=== PATIENT | female | born 1990 | race Caucasian/White ===

== ENCOUNTER 2019-09-19 16:31 | Emergency (ER) | payer MEDICAID, SELFPAY ==
[2019-09-19 16:32] VITALS: BP 130/88; PULSE 96; RESP 18; TEMP 36.6; O2SAT 99; BMI 20.5
--- NOTE | 2019-09-19 17:06 | ED.DCSUM_ITS ---
- ER Visit Summary Date of Service: 09/19/19 Chief Complaint: [Dog bite to right hand] History of Present Illness: The patient is a 29 F [presents to the emergency department after being bitten on her hand by her dog. Patient states that she got between 2 of her dogs that were fighting and was bitten on the right hand. Her dogs are immunized. Patient is right-hand dominant. Patient unsure of her last tetanus shot. Patient was seen with PA and discussed with PA.] Physical Examination: [Right hand-patient has several superficial abrasions and puncture wounds. The largest laceration/puncture wound is over the dorsum of the hand about the base of the fourth metacarpal and measures approximately 1.5 cm in length. Patient has good range of motion flexion extension of all digits. Neurovascular intact distally.] The puncture wound was inspected however it is too small to get a good look at visualization of the extensor tendon to the fourth finger. Given that patient has good range of motion and strength I did not feel extending the wound was necessary. Test Results: [None indicated] Emergency Department Course and Treatment: [Laceration repair-because the wound over the dorsum of the right hand was gaping and there was fat extruding I felt it necessary to apply one single ruptured suture to approximate the wound edges loosely. The wound was irrigated with copious saline and anesthetized locally with 1% lidocaine. The suture was placed by the physician operations assistant and I reevaluated when he was finished. Was given Augmentin 875 mg p.o. Patient was given a tetanus booster.] Treatment Plan: Patient will follow-up with [referral to . Patient is advised that she will require another exam to evaluate her extensor tendon once the swelling has diminished and the pain is diminished. She will be started on Augmentin. Patient advised return if increasing pain, redness, swelling, purulent drainage, or condition should worsen anyway.] Disposition: [Discharged home in stable condition] Impression: [Dog bite right hand Laceration right hand 1.5 cm-simple repair] This note was generated with [employer] software. It may contain incorrect words, spelling, and punctuation that were not noted in review of the chart prior to signing ED Disposition - Plan for ED Patient: Referrals: Care Physician,No Primary [Primary Care Provider] -
--- NOTE | 2019-09-19 17:18 | ED.DEP ---
ED Disposition - Plan for ED Patient: Instructions: Dog Bite Prescriptions: Amox/Clavulanate Tablet [Augmentin Tablet] 875 mg PO Q12H #20 tab Prescription Printed Referrals: Care Physician,No Primary [Primary Care Provider] - Florin Mcghee MD [STAFF PHYSICIAN] - 10 Day for suture removal
--- NOTE | 2019-09-19 17:19 | ED.VIS.UPPEX ---
History of Present Illness Chief Complaint: Bite Informant: Patient, Significant Other Occurred: Today Mechanism/Context: Incised, - - dog bite Onset: Today Context: Sudden Onset Timing: Continuous Quality of Pain: Sharp Location: right hand Current Severity: Moderate Maximum Severity: Severe Worsened by: Movement Relieved by: Rest Associated Symptoms: Negative for: Parasthesia, Weakness, Loss of Funtion Narrative: 29-year-old female [id number] presents to the emergency department with a dog bite right hand that occurred on her dog just prior to arrival. Minor bleeding at this time no numbness tingling or weakness. Does not remember when her last tetanus immunization was. She does not have any other injuries at this time. She is not on blood thinners and has no history of diabetes. She has no other complaints Tetanus Immunization: Unknown Prior similar symptoms: No Recent Illness/Hospitalization: No Past Medical History - Allergies and Home Meds Allergies/Adverse Reactions: Allergies No Known Allergies Allergy (Verified 09/19/19 16:35) Primary Care Physician: Florin Mcghee MD [STAFF PHYSICIAN] - 10 Day for suture removal Care Physician,No Primary [Primary Care Provider] - Prior records reviewed: Yes Past Medical History: None Surgical History: no surgical history Lives: With Family Smoking Status: Light Smoker (<10/day) Alcohol: Occasional Drugs: None Review of Systems All systems negative except as indicated General: Denies: Chills, Fever Eyes: Denies: Visual changes - bilaterally, Blurred Vision - bilaterally ENT: Denies: Rhinorrhea, Sore throat Cardiovascular: Denies: Chest pain, Palpitations Respiratory: Denies: Dyspnea, Cough Gastrointestinal: Denies: Abdominal pain, Nausea, Vomiting, Diarrhea Genitourinary: Denies: Dysuria, Hematuria, Frequency Musculoskeletal: Reports: Extremity Pain. Denies: Back pain, Swelling Skin: Reports: Abrasions, Wounds. Denies: Rash, Abscess Neurological: Denies: Headache, Weakness, Parasthesia, Numbness Physical Exam Vital Signs/Narrative: Vital Signs Temp Pulse Resp BP Pulse Ox 09/19/19 16:32 97.8 F 96 18 130/88 H 99 Inital Vital Signs reviewed: Yes Right Hand: - - Patient has a 1.25 cm gaping laceration dorsum right hand between the wrist and the fourth MCP in the middle of the dorsum of the hand. There is mild active bleeding but no arterial or pulsatile bleeding. She also has a small small puncture wound less than half a centimeter lateral to that in line with the fifth MCP on the dorsum of the hand. There is in addition a small abrasion over the dorsum of the hand between the first and second MCP joints but no laceration. Patient has full active range of motion with flexion and extension at the MCP, PIP and DIP joints of the second, third, fourth and fifth fingers. Normal range of motion actively of the thumb. Capillary refill and sensation are normal of all 5 fingers. Radial pulse is normal. Normal range of motion actively at the wrist. Two-point discrimination normal of the right fourth finger and right fifth finger. General: Well nourished, Well developed Head: Normocephalic, Atraumatic Eyes: Perrl, EOMI ENT: No Trauma Neck: Nontender, Full ROM Cardiovascular: Regular rate, Regular rhythm Respiratory: No distress, CTA bilaterally Back: Nontender Skin: Normal color, No rash, Trauma Neurological: Alert, Oriented x3 Psychological: Normal affect Diagnostic/Tx/Re-eval - Medical Decision Making Patient's tetanus was updated. Under sterile conditions with Betadine prep lidocaine was used locally for anesthesia of the patient's wound, approximately 3 cc. The wound was thoroughly irrigated and explored. There was no arterial injury noted or foreign body and there was no obvious injury to any of the stents or tendons but because the wound was small there was no definitive visualization of the extensor tendon. It was then cleansed again with Betadine and 1 simple suture nylon #4?0 was used for loose approximation because the wound was gaping. Sterile dressing was applied to the wound. Patient will be placed on Augmentin for this and her first dose was given in the emergency department. Advised patient on proper wound care and she was given signs of infection to monitor for. She was referred to Dr. Mcghee plastic surgery for repeat evaluation otherwise she will return for worsening symptoms. She was agreeable with plan all questions were answered. Procedures - Lacerations No standard instances Depth: Skin Shape: Linear Prep: Sterile Conditions, Betadine Laceration Repair: Lidocaine, Local, Wound explored Irrigated (ml): 150 Number of Sutures/Kimberly: 1 Suture Information: Ethilon, Simple, 4-0 ED Disposition - Plan for ED Patient: Disposition: Home or Assisted Living Instructions: Dog Bite Prescriptions: Amox/Clavulanate Tablet [Augmentin Tablet] 875 mg PO Q12H #20 tab Prescription Printed Referrals: Florin Mcghee MD [STAFF PHYSICIAN] - 10 Day for suture removal Care Physician,No Primary [Primary Care Provider] -
[2019-09-19] MEDS: Amox/Clavulanate 875 MG Tablet PO (17:23)
[2019-09-19] MEDS: Diphth,Pertuss(Acell),Tet Vac 0.5 ML Vial IM (17:23)
[2019-09-19 17:58] VITALS: BP 112/72; PULSE 79; RESP 18; O2SAT 99
== END 2019-09-19 17:58 | disposition home or self-care (01) ==
PROVIDERS: Emergency Provider Physician Assistant Medical
DX: S61.411A Laceration without foreign body of right hand, initial encounter (principal); Z23 Encounter for immunization; F17.200 Nicotine dependence, unspecified, uncomplicated; W54.0XXA Bitten by dog, initial encounter; Y93.89 Activity, other specified; Y92.008 Other place in unspecified non-institutional (private) residence as the place of occurrence of the external cause; Y99.8 Other external cause status
CPT/HCPCS: 12001; 90471; 90715; 99283

== ENCOUNTER 2021-06-14 07:34 | Emergency (ER) | payer OTHER, SELFPAY ==
[2021-06-14 07:35] VITALS: BP 118/50; PULSE 106; RESP 20; TEMP 38; O2SAT 100; BMI 19.2
--- NOTE | 2021-06-14 07:55 | EDS_ITS ---
HPI HPI - GI History of Present Illness Chief Complaint: Abd Pain Informant: patient Narrative Narrative: Patient is a 31-year-old female presenting with worsening abdominal pain. Patient states she has had menstrual-like cramping for the past 2 to 3 days. 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 She is been just spotting. She is currently trying to conceive. Last night her pain had become more severe and she developed a fever. She states at 1 point localized to her right flank but it still mostly around her bellybutton. She describes it as sharp in nature. She has had 2 episodes of vomiting prior to arrival and another one here. She not take anything for pain before coming in. She normally takes Tylenol. She notes her stomach frequently hurts but she never had pain like this before. She is also never had a belly pain worked up. She denies any cough or upper respiratory symptoms. Patient states she does have painful bowel movements but feels that it is her uterus pushing on her colon. She has had some cramping/aches in her legs lately. She denies any recent significant weight changes. She has any family history of inflammatory bowel disease. No other complaints at this time. PFSH PFSH Medical History no medical history Home Medications hydrocodone-acetaminophen 1 tab PO Q6H PRN 3 Days #12 tab 06/14/21 [Rx Last Taken Unknown] ibuprofen 600 mg PO Q6H PRN PRN #20 tab 06/14/21 [Rx Last Taken Unknown] ondansetron HCl [Zofran] 4 mg PO Q8H PRN #14 tab 06/14/21 [Rx Last Taken Unknown] Allergy/AdvReac Type Severity Reaction Status Date / Time No Known Allergies Allergy Verified 09/19/19 16:35 Surgical History no surgical history Social History Smoking Status: Light Smoker (<10/day) ROS ROS ED Constitutional Constitutional ED: Reports chills and fever(s) ENT ENT ED: Denies ear pain, rhinorrhea or sore throat Cardiovascular Cardiovascular: Denies chest pain Respiratory/Chest Respiratory/Chest: Denies cough or dyspnea Gastrointestinal Gastrointestinal: Reports abdominal pain, nausea and vomiting Genitourinary Genitourinary ED: Denies dysuria or hematuria Musculoskeletal Musculoskeletal: Reports back pain and myalgias; Denies arthralgias Integumentary Denies rash Neurologic Neurologic: Denies headache(s) or weakness Psychiatric Psychiatric: Denies depression EXAM Physical Exam Const Vital Signs: 06/14/21 07:35 06/14/21 13:14 Temperature 100.4 F H Temperature Source Temporal Pulse Rate 106 H 76 Respiratory Rate 20 H 18 Blood Pressure 118/50 L 121/62 H Blood Pressure Mean 72 Pulse Ox 100 97 Oxygen Delivery Method Room Air Positive well nourished and well developed General Appearance ED: well developed HEENT normocephalic and atraumatic Eyes PERRL Neck supple GI non-distended GI Narrative: Diffuse voluntary guarding and tenderness. Pain does not localize to any quadrant. Inspection: Negative for abdominal distention Palpation: tender and guarding Back/Spine no CVA tenderness Extremity full ROM General Extremety ED: Negative for edema or tenderness General Extremity: Negative for edema Neuro no sensory deficits noted Sensorium / Orientation: alert Motor Exam: Negative for general weakness Psych mental status grossly normal Skin Lesions: no lesions Rashes: no rashes MDM MDM MDM Narrative Medical decision making narrative: Patient evaluated for significant abdominal pain. She has had ongoing pain for couple days but became severe today. On arrival patient is febrile, tachycardic and has guarding on exam. Patient is given IV fluids, Motrin, Zofran and Toradol. On repeat evaluation her abdomen is now soft and while she is sore she states she feels much better. Work-up is remarkable for leukocytosis of 16.8, lactic acidosis of 2.9 and blood in her urine. I suspect the blood in her urine is menstrual contamination. CT of abdomen pelvis obtained with contrast for concern of acute appendicitis. She has a large discontinuous right adnexal cyst, possibly hemorrhagic with moderate free fluid in the pelvis. Ultrasound obtained to further visualize this and rule out torsion. Ultrasound does not show any signs of torsion but does show a hemorrhagic cyst. This likely explains her presentation. Patient is given INSURANCE SPECIAL AGENT for outpatient follow-up. I did send off gonorrhea chlamydia which is pending. Patient is discharged home with a short course of [place] for pain control as well as Zofran and ibuprofen. Patient is counseled on signs and symptoms requiring return to the emergency room. Patient verbalizes agreement and understand this plan. Patient discharged home in stable and improved condition. Lab Data Attestation: I reviewed the patient's lab results. Labs: Laboratory Results - last 24 hr 06/14/21 06/14/21 06/14/21 08:00 08:00 08:00 WBC 16.8 H RBC 4.07 L Hgb 12.5 Hct 36.8 L MCV 90.4 MCH 30.7 MCHC 34.0 RDW Std Deviation 39.8 RDW Coeff of Kaci 12.0 Plt Count 267 MPV 8.8 Immature Gran % (Auto) 0.700 Neut % (Auto) 92.6 H Lymph % (Auto) 4.0 L [place] % (Auto) 2.5 Eos % (Auto) 0.0 Baso % (Auto) 0.2 Absolute Neuts (auto) 15.6 H Absolute Lymphs (auto) 0.67 L Nucleated RBC % 0 Sodium 137 Potassium 4.0 Chloride 103 Carbon Dioxide 25.0 Anion Gap 9 BUN 10 Creatinine 0.81 Estim Creat Clear Calc 93.68 Est GFR (MDRD) Af Amer 106 Est GFR (MDRD) Non-Af 88 BUN/Creatinine Ratio 12.4 Glucose 168 H Lactic Acid 2.9 H* Calcium 9.0 Total Bilirubin 0.80 AST 39 H ALT 31 Alkaline Phosphatase 73 Total Protein 7.7 Albumin 3.3 Globulin 4.4 H Albumin/Globulin Ratio 0.8 L Lipase 34 L Serum , Qual Urine Color Urine Clarity Urine pH Ur Specific [place] Urine Protein Urine Glucose (UA) Urine Ketones Urine Occult Blood Urine Nitrite Urine Bilirubin Urine Urobilinogen Ur Leukocyte Esterase Urine RBC Urine WBC Ur Squamous Epith Cells Urine Bacteria Urine Mucus 06/14/21 06/14/21 08:00 10:34 WBC RBC Hgb Hct MCV MCH MCHC RDW Std Deviation RDW Coeff of Kaci Plt Count MPV Immature Gran % (Auto) Neut % (Auto) Lymph % (Auto) [place] % (Auto) Eos % (Auto) Baso % (Auto) Absolute Neuts (auto) Absolute Lymphs (auto) Nucleated RBC % Sodium Potassium Chloride Carbon Dioxide Anion Gap BUN Creatinine Estim Creat Clear Calc Est GFR (MDRD) Af Amer Est GFR (MDRD) Non-Af BUN/Creatinine Ratio Glucose Lactic Acid Calcium Total Bilirubin AST ALT Alkaline Phosphatase Total Protein Albumin Globulin Albumin/Globulin Ratio Lipase Serum , Qual NEGATIVE Urine Color Yellow Urine Clarity Sl. Cloudy Urine pH 6.5 Ur Specific [place] 1.010 Urine Protein 30 H Urine Glucose (UA) Normal Urine Ketones 15 H Urine Occult Blood 150 H Urine Nitrite Negative Urine Bilirubin Negative Urine Urobilinogen 8 H Ur Leukocyte Esterase 25 H Urine RBC 10-25 SEEN Urine WBC 0-5 SEEN Ur Squamous Epith Cells 0-5 SEEN Urine Bacteria 1+ Urine Mucus 0 SEEN Radiography Diagnostic Testing: Clinical Impression(s) from Imaging Studies Abdomen/Pelvis CT 06/14/21 08:31 IMPRESSION: There is a large discontinuous right adnexal cyst, possibly hemorrhagic cyst, with moderate surrounding free fluid in the pelvis suggesting cystic rupture. Pelvic ultrasound is recommended to further evaluate the right ovary. Mild mesenteric edema, small free fluid in the right lower quadrant and mild periportal edema. Electronically Signed: Theresa Hayes MD at 11:35 EDT Tel , Service support , Transvaginal US 06/14/21 10:31 IMPRESSION: 6 cm probable hemorrhagic corpus luteum cyst of the right ovary and follow-up ultrasound is recommended in 6 weeks to document resolution. Electronically Signed: Jose Manuel Garsia MD at 11:44 EDT Tel , Service support , Discharge Plan Triage Chief Complaint: Abd Pain ED Provider: Xiomara Meier Dx/Rx/DC Orders Clinical Impression: Rupture of cyst of right ovary Instructions: ED Ovarian Cyst Prescriptions: New hydrocodone-acetaminophen 5-325 mg tablet 1 tab PO Q6H PRN (Reason: pain) 3 Days Qty: 12 RF: 0 ondansetron HCl [Zofran] 4 mg tablet 4 mg PO Q8H PRN (Reason: nausea and vomiting) Qty: 14 RF: 0 ibuprofen 600 mg tablet 600 mg PO Q6H PRN PRN (Reason: Pain Score 1-10/10) Qty: 20 RF: 0 Primary Care Provider: Care Physician,No Primary Referrals: Koki Nova MD [STAFF PHYSICIAN] - Care Physician,No Primary [Primary Care Provider] - Disposition Disposition: Home, Self Care Discharge Date/Time: 06/14/21 13:57
[2021-06-14] MEDS: 0.9% Normal Saline 1,000 ML 1000 ML IV (08:09)
[2021-06-14] MEDS: Ketorolac 15 MG/ML Vial IV (08:10)
[2021-06-14] MEDS: Morphine 4 MG/ML Syringe IV (08:10)
[2021-06-14] MEDS: Ondansetron 4 MG/2 ML Vial IV (08:10)
[2021-06-14 08:17] LABS: Absolute Lymphocyte Count 0.67 X10^3/uL (0.83-4.51); Absolute Neutrophil Count 15.6 X10^3/uL (2.0-7.7); Basophil# 0.03 X10^3/uL; Basophil% 0.2 % (0-1); Hematocrit 36.8 % (37-47); Hemoglobin 12.5 g/dL (12.0-15.0); Lymphocyte # 0.67 X10^3/ul (0.83-4.51); Mean Corpuscular Hgb 30.7 pg (27.0-32.0); Mean Corpuscular Volume 90.4 fL (81-99); Mean Platelet Vol. 8.8 fl (6.2-12.0); Monocyte# 0.42 X10^3/uL; Monocyte% 2.5 % (0-10); NRBC Flagged by Analyzer 0 % (0-5); Neutrophil # 15.55 X10^3/uL (2.7-7.7); Neutrophil % 92.6 % (47-70); Platelet Count 267 K/mm3 (150-450); RBC Distribution Width SD 39.8 fl (35.1-43.9); Red Blood Count 4.07 M/mm3 (4.2-5.4); White Blood Count 16.8 K/mm3 (4.4-11.0)
--- NOTE | 2021-06-14 08:31 | CT_ITS ---
STUDY: CT ABDOMEN AND PELVIS WITH CONTRAST REASON FOR EXAM: Female, 31 years old. abdominal pain -- IV PO Contrast RADIATION DOSAGE (If Supplied By Facility): CTDIvol = ( 7.04 ) mGy, DLP = ( 391.83 ) mGycm TECHNIQUE: Transaxial images were obtained from the dome of the diaphragm to the symphysis pubis with oral contrast. Oral and amp; IV Gastrografin and amp; 100mL Isovue-300 was administered. Sagittal and coronal images were reconstructed. Individualized dose optimization techniques were used for this CT. COMPARISON: None. FINDINGS: The visualized lung bases are unremarkable. The visualized portions of the heart are within normal limits. Normal liver. Normal gallbladder and extrahepatic biliary system. There is mild periportal edema. Normal spleen. Normal pancreas. Normal bilateral adrenal glands. Normal right kidney. 9 mm right renal upper pole cyst. Normal left kidney. Normal visualized stomach. Normal small intestine. Normal colon. The appendix is visualized and appears normal. Normal abdominal aorta. Normal inferior vena cava. Normal retroperitoneum. There is mild mesenteric edema and small free fluid in the right lower quadrant. Normal urinary bladder. There is a large right adnexal cyst measuring 4.2 x 4.2 cm with a discontinuous wall and moderate surrounding free fluid suggesting cyst rupture. The cystic contents measures somewhat greater than simple fluid. The uterus is retroverted. Normal abdominal wall. Normal osseous structures. CT/Abdomen/Pelvis WITH Contrast IMPRESSION: There is a large discontinuous right adnexal cyst, possibly hemorrhagic cyst, with moderate surrounding free fluid in the pelvis suggesting cystic rupture. Pelvic ultrasound is recommended to further evaluate the right ovary. Mild mesenteric edema, small free fluid in the right lower quadrant and mild periportal edema. Electronically Signed: Theresa Hayes MD at 11:35 EDT Tel , Service support ,
[2021-06-14 08:44] LABS: Internal QC Validated? YES +Cl - CLEAR BKGD; Pregnancy, Serum, hCG Quali. NEGATIVE Negative
[2021-06-14 08:52] LABS: ALB/GLOB Ratio 0.8 RATIO (0.9-2.4); AST(SGOT) 39 U/L (15-37); Alanine Aminotransfer ALT/SGPT 31 U/L (13-56); Albumin, Serum 3.3 g/dL (3.2-5.0); Alkaline Phosphatase 73 U/L (45-117); Anion Gap 9 (5-15); BUN 10 mg/dL (7-18); BUN/Creat Ratio 12.4 RATIO (10-20); Chloride 103 mmol/L (98-107); Creatinine, Serum 0.81 mg/dL (0.55-1.02); EST Glomerular Filtration Rate 88 mL/min (>60); Est Glom Filt Rate - Afr Amer 106 mL/min (>60); Estimated Creatinine Clearance 93.68 ml/min; Globulin 4.4 g/dL (2.2-4.2); Glucose 168 mg/dL (74-106); Lipase 34 U/L (73-393); Protein, Total 7.7 g/dL (6.4-8.2); Sodium Level 137 mmol/L (136-145)
[2021-06-14 08:53] LABS: Lactic Acid 2.9 mmol/L (0.4-1.9)
--- NOTE | 2021-06-14 10:31 | US_ITS ---
STUDY: ULTRASOUND TRANSVAGINAL CLINICAL: Female, 31 years old. abd pain, enlarge left ovary/mass TECHNIQUE: Transvaginal COMPARISON: None. FINDINGS: Normal uterine size measuring 7.5 x 5.3 x 4.5 cm in maximal craniocaudal dimension. There are no myometrial masses. Normal endometrial thickness measuring 12 mm. There are no endometrial masses, and there is no fluid in the endometrial cavity. Normal uterine cervix. Enlarged right ovary, measuring 8.3 x 5.9 x 4.8 cm. There are multiple follicles with a 3.5 x 6.0 cm oval cystic mass with a fluid fluid level containing isoechoic material consistent with probable hemorrhagic corpus luteum cyst. Follow-up ultrasound is recommended in 6 weeks to document resolution.. Normal left ovary, measuring 2.8 x 2.8 x 2.3 cm. There are multiple follicles without a dominant cyst. There is no free fluid in the pelvis. Polycystic ovary disease: No. US/Transvaginal Non- IMPRESSION: 6 cm probable hemorrhagic corpus luteum cyst of the right ovary and follow-up ultrasound is recommended in 6 weeks to document resolution. Electronically Signed: Jose Manuel Garsia MD at 11:44 EDT Tel , Service support ,
[2021-06-14 10:43] LABS: Mucous, Urine 0 SEEN /hpf (<or=2+)
[2021-06-14 10:51] LABS: Color, Urine Yellow (Yellow); Glucose, Dipstick Normal (Normal); Ketone-Dipstick 15 mg/dl (Negative); Leukocyte Esterase-Dipstick 25 /ul (Negative); Nitrite-Dipstick Negative (Negative); Occult Blood-Urine 150 /ul (Negative); Protein-Dipstick 30 mg/dl (Negative); Urine Bilirubin Dipstick Negative (Negative); Urine Clarity Sl. Cloudy (Clear); Urine Urobilinogen 8 mg/dl (Normal); Urine pH 6.5 (5.0 - 8.0)
[2021-06-14 11:04] LABS: Bacteria 1+ /hpf (None Seen); Red Blood Cells-Urine 10-25 SEEN /hpf (0-5); Squamous Epithelial Cells - UA 0-5 SEEN /hpf (5-10); White Blood Cells 0-5 SEEN /hpf (0-5)
[2021-06-14 12:11] LABS: Reflex Lactate? Y
[2021-06-14 13:14] VITALS: BP 121/62; PULSE 76; RESP 18; O2SAT 97
[2021-06-14 17:26] LABS: Chlamydia Trachomatis by PCR Negative (Negative); Neisserai gonorrhoeae by PCR Negative (Negative)
[2021-06-14 17:27] LABS: Probe Check PASS; Sample Adequacy Control PASS; Specimen Processing Control PASS
== END 2021-06-14 13:57 | disposition home or self-care (01) ==
PROVIDERS: Emergency Provider Emergency Medicine
DX: N83.11 Corpus luteum cyst of right ovary (principal); F17.200 Nicotine dependence, unspecified, uncomplicated
CPT/HCPCS: 74177; 76830; 80053; 81001; 83605; 83690; 84703; 85025; 87426; 87491; 87591; 93976; 96361; 96374; 96375; 99283; J7030; Q9967; A4216; J2405

== ENCOUNTER 2021-06-19 05:44 | Emergency (ER) | payer OTHER, SELFPAY ==
[2021-06-19 05:45] VITALS: BP 115/75; PULSE 100; RESP 18; TEMP 36.9; O2SAT 100; BMI 19.1
--- NOTE | 2021-06-19 05:59 | US_ITS ---
STUDY: ULTRASOUND OF THE FEMALE PELVIS - COMPLETE REASON FOR EXAM: Female, 31 years old. 8 day history of pelvic pain. LMP: 06/11/2021. TECHNIQUE: Transvaginal TECHNICAL QUALITY: Adequate. COMPARISON: Comparison is made with prior ultrasound the pelvis dated 06/14/[address] scan of the pelvis dated 06/14/2021. FINDINGS: The uterus is retroverted and is in a midline position. The uterus measures 7.2 cm x 4.3 cm x 4.1 cm. Normal uterine cervix. The endometrium measures 9 mm in thickness, and is hyperechoic. There is no demonstrated endometrial mass. There is no demonstrated myometrial mass. I.U.D. - The patient does not have an I.U.D. The right ovary is visualized. The right ovary is enlarged and measures 8.1 cm x 6.1 cm x 5.3 cm. There is a 6.1 cm x 5.4 cm x 4.6 cm complex solid and cystic mass. This may represent an hemorrhagic cyst although a neoplastic process should be ruled out. There is no visualized right adnexal mass or complex lesion. There is normal arterial and normal venous vascularity. The left ovary is visualized. The left ovary measures 3.8 cm x 5 cm x 2.7 cm. There is a 2.2 cm x 2.1 cm x 1.5 cm cyst. There is no visualized left adnexal mass or complex lesion. There is normal arterial and normal venous vascularity. There is minimal fluid in the cul-de-sac. US/Transvaginal Non- IMPRESSION: Persistent 6.1 cm x 5.4 cm x 4.6 cm complex solid and cystic mass in the right adnexa. This may represent a hemorrhagic cyst. Follow-up is recommended. Small amount of fluid in the cul-de-sac. 2.2 cm x 2.1 cm x 1.5 cm cyst in the left ovary. Electronically Signed: Kip Lozano MD at 8:33 EDT , Service support ,
--- NOTE | 2021-06-19 06:00 | EDS_ITS ---
HPI HPI - GI History of Present Illness Chief Complaint: Abd Pain Narrative Narrative: 31-year-old female presenting with abdominal pain. She points to her right lower quadrant. She has a history of hemorrhagic cyst in this area on the . She had a work-up in the ED and ultimately was discharged home with [place]. She states that her pain was good until she ran out of pain medicine yesterday. She does describe some mild nausea. She states that her pain is not worse or better than it was prior to getting narcotic pain medication but it is worse since she ran out of it. She has not had a return of the fever she had the other day. She is not vomiting. No diarrhea. PFSH PFSH Medical History no medical history Home Medications ibuprofen 600 mg PO Q6H PRN PRN #20 tab 06/14/21 [Rx Last Taken Unknown] Allergy/AdvReac Type Severity Reaction Status Date / Time No Known Allergies Allergy Verified 06/19/21 05:48 Surgical History no surgical history Social History Smoking Status: Light Smoker (<10/day) ROS ROS ED Constitutional Constitutional ED: Reports other Details: Fever resolved from the ; Denies chills, fever(s) or sweats ENT ENT ED: Denies rhinorrhea or sore throat Cardiovascular Cardiovascular: Denies chest pain or palpitations Respiratory/Chest Respiratory/Chest: Denies cough or dyspnea Gastrointestinal Gastrointestinal: Reports abdominal pain and nausea; Denies diarrhea or vomiting Genitourinary Genitourinary ED: Denies dysuria or hematuria Musculoskeletal Musculoskeletal: Denies back pain or neck pain Integumentary Denies Abrasions or rash Neurologic Neurologic: Denies headache(s) or paresthesias EXAM Physical Exam Const Vital Signs: 06/19/21 05:45 Temperature 98.5 F Temperature Source Oral Pulse Rate 100 Respiratory Rate 18 Blood Pressure 115/75 Blood Pressure Mean 88 Pulse Ox 100 Positive well nourished General Appearance ED: NAD; Negative for pallor HEENT normocephalic and atraumatic Eyes PERRL and EOMs intact bilaterally Resp normal respiratory effort and clear to auscultation bilaterally Cardio regular rate and regular rhythm GI Palpation: tender RLQ Neuro CN's II-XII intact bilaterally Sensorium / Orientation: alert, oriented to person, oriented to place and oriented to time Psych mental status grossly normal and thought process normal Skin General Skin Exam: Negative for jaundice or pallor Lesions: no lesions Rashes: no rashes MDM MDM MDM Narrative Medical decision making narrative: Medical record was reviewed and apparently patient had a fever which she was seen previously she also had an elevated lactic acid. She was treated medically. On her CT of the abdomen that showed a complex cyst. She had a transvaginal ultrasound which showed a hemorrhagic cyst. Patient was supposed to follow-up with [facility] but due to insurance difficulties was unable to make an appointment. She is out of [place] and now having her pain return. She has no return of her fever. She is not vomiting but has some nausea. She complains of pain in the right lower quadrant. Will obtain lab work and repeat ultrasound. CBC shows that her leukocytosis has improved to 11.4. Her hemoglobin has dropped from 12.5-11.2. I feel this is likely expected due to the hemorrhagic cyst. She is not hypotensive or tachycardic and likely will not need blood transfusion. Her LFTs are normal. Creatinine is normal as well. She does have a slight drop in her potassium at 3.1. This can be replaced via diet orally but I will obtain a transvaginal ultrasound first to ensure she does not have torsion or other acute surgical needs prior to doing this. Patient will be signed out to incoming ED physician for follow-up and management. Impression: 1. History of hemorrhagic ovarian cyst 2. Leukocytosis resolving 3. Anemia Lab Data Labs: Laboratory Results - last 24 hr 06/19/21 06/19/21 06:14 06:14 WBC 11.4 H RBC 3.73 L Hgb 11.2 L Hct 34.1 L MCV 91.4 MCH 30.0 MCHC 32.8 RDW Std Deviation 43.3 RDW Coeff of Kaci 13.0 Plt Count 350 MPV 8.7 Immature Gran % (Auto) 2.000 H Neut % (Auto) 74.9 H Lymph % (Auto) 10.9 L Travis % (Auto) 11.3 H Eos % (Auto) 0.4 Baso % (Auto) 0.5 Absolute Neuts (auto) 8.5 H Absolute Lymphs (auto) 1.24 Nucleated RBC % 0 Sodium 141 Potassium 3.1 L Chloride 105 Carbon Dioxide 28.0 Anion Gap 8 BUN 9 Creatinine 0.50 L Estim Creat Clear Calc 151.07 Est GFR (MDRD) Af Amer 183 Est GFR (MDRD) Non-Af 152 BUN/Creatinine Ratio 17.9 Glucose 89 Calcium 8.2 L Total Bilirubin 0.30 AST 11 L ALT 30 Alkaline Phosphatase 115 Total Protein 6.2 L Albumin 2.0 L Globulin 4.2 Albumin/Globulin Ratio 0.5 L Discharge Plan Triage Chief Complaint: Abd Pain ED Provider: Jorge Luis Mcintyre Dx/Rx/DC Orders Prescriptions: No Action ibuprofen 600 mg tablet 600 mg PO Q6H PRN PRN (Reason: Pain Score 1-10/10) Qty: 20 RF: 0 Primary Care Provider: Care Physician,No Primary
[2021-06-19] MEDS: Morphine 4 MG/ML Syringe IV (06:13)
[2021-06-19] MEDS: 0.9% Normal Saline 1,000 ML 1000 ML IV (06:13)
[2021-06-19] MEDS: Ondansetron 4 MG/2 ML Vial IV (06:13)
[2021-06-19 06:21] LABS: Absolute Lymphocyte Count 1.24 X10^3/uL (0.83-4.51); Absolute Neutrophil Count 8.5 X10^3/uL (2.0-7.7); Basophil# 0.06 X10^3/uL; Basophil% 0.5 % (0-1); Eosinophil# 0.04 X10^3/uL; Eosinophils% 0.4 % (0-5); Hematocrit 34.1 % (37-47); Hemoglobin 11.2 g/dL (12.0-15.0); Lymphocyte # 1.24 X10^3/ul (0.83-4.51); Lymphocyte % 10.9 % (19-41); Mean Corp Hgb Conc 32.8 g/dL (32-36); Mean Corpuscular Volume 91.4 fL (81-99); Mean Platelet Vol. 8.7 fl (6.2-12.0); Monocyte# 1.28 X10^3/uL; Monocyte% 11.3 % (0-10); NRBC Flagged by Analyzer 0 % (0-5); Neutrophil % 74.9 % (47-70); Platelet Count 350 K/mm3 (150-450); RBC Distribution Width SD 43.3 fl (35.1-43.9); Red Blood Count 3.73 M/mm3 (4.2-5.4); White Blood Count 11.4 K/mm3 (4.4-11.0)
[2021-06-19 06:44] LABS: ALB/GLOB Ratio 0.5 RATIO (0.9-2.4); AST(SGOT) 11 U/L (15-37); Alanine Aminotransfer ALT/SGPT 30 U/L (13-56); Alkaline Phosphatase 115 U/L (45-117); Anion Gap 8 (5-15); BUN 9 mg/dL (7-18); BUN/Creat Ratio 17.9 RATIO (10-20); Calcium,Total 8.2 mg/dL (8.5-10.1); Chloride 105 mmol/L (98-107); EST Glomerular Filtration Rate 152 mL/min (>60); Est Glom Filt Rate - Afr Amer 183 mL/min (>60); Estimated Creatinine Clearance 151.07 ml/min; Globulin 4.2 g/dL (2.2-4.2); Glucose 89 mg/dL (74-106); Potassium 3.1 mmol/L (3.5-5.1); Protein, Total 6.2 g/dL (6.4-8.2); Sodium Level 141 mmol/L (136-145)
[2021-06-19 09:33] LABS: Color, Urine Yellow (Yellow); Glucose, Dipstick Normal (Normal); Leukocyte Esterase-Dipstick 25 /ul (Negative); Nitrite-Dipstick Negative (Negative); Occult Blood-Urine 25 /ul (Negative); Protein-Dipstick 15 mg/dl (Negative); Urine Bilirubin Dipstick Negative (Negative); Urine Clarity Sl. Cloudy (Clear); Urine Urobilinogen 4 mg/dl (Normal)
[2021-06-19 09:39] LABS: Ketone-Dipstick 150 mg/dl (Negative)
[2021-06-19 09:45] LABS: Bacteria 1+ /hpf (None Seen); Calcium Oxalate Crystals Ur RARE /hpf (<or=2+); Mucous, Urine 1+ /hpf (<or=2+); Red Blood Cells-Urine 0-5 SEEN /hpf (0-5); Squamous Epithelial Cells - UA 0-5 SEEN /hpf (5-10); White Blood Cells 0-5 SEEN /hpf (0-5)
[2021-06-19 10:01] VITALS: BP 118/82; PULSE 96; RESP 17; O2SAT 100
== END 2021-06-19 10:03 | disposition home or self-care (01) ==
PROVIDERS: Emergency Provider Student in an Organized Health Care Education/Training Program
DX: N83.201 Unspecified ovarian cyst, right side (principal); D72.829 Elevated white blood cell count, unspecified; D64.9 Anemia, unspecified; F17.200 Nicotine dependence, unspecified, uncomplicated
CPT/HCPCS: 76830; 80053; 81001; 85025; 93976; 96361; 96374; 96375; 99283; J7030; A4216; J2405